=== PATIENT | male | born 1950 | race Caucasian/White ===

== ENCOUNTER 2020-08-12 12:36 | Outpatient (REF) | payer BC, MEDICARE, SELFPAY ==
--- NOTE | ~2020-08-12 | XR_ITS ---
EXAMINATION: XR LUMBOSACRAL SPINE CLINICAL INFORMATION: Chronic low back pain. COMPARISON: 11/16/2016 TECHNIQUE: 3 views of the lumbosacral spine. FINDINGS: There are 5 [id number] lumbar vertebra. There is mild scoliosis at the thoracolumbar junction convex right. No acute fractures appreciated. There is moderate narrowing of the L5-S1 disc space. Facet arthropathy is seen at the L5-S1 level. There is some mild spurring and sclerosis seen involving both sacroiliac joints. No spondylolisthesis or spondylolysis appreciated. There are again is noted to be mild compressions involving the superior endplate of T12 and inferior endplate of L1. XR/XR lumbar spine 2-3V IMPRESSION: No acute fracture, spondylolisthesis, or spondylolysis of the lumbar spine. Facet arthropathy L5-S1 with some disc space narrowing at this level.
== END 2020-08-12 12:37 | disposition home or self-care (01) ==
LOC: HO.XRAY 12:36
PROVIDERS: PCP Family Medicine
DX: G89.29 Other chronic pain (principal); M54.5 Low back pain
CPT/HCPCS: 72100